=== PATIENT | male | born 1985 | race Caucasian/White ===

== ENCOUNTER 2025-09-14 08:59 | Emergency (ER) | payer OTHER, SELFPAY ==
[2025-09-14 09:06] VITALS: BP 174/108; PULSE 94; RESP 22; TEMP 35.5; O2SAT 99; BMI 31.9
[2025-09-14] MEDS: ONDANSETRON 2 MG/ML inj 4 MG IVP (09:16)
--- NOTE | 2025-09-14 09:17 | CRLHL7_ITS ---
For Patients: As a result of the Century Cures Act, medical imaging exams and procedure reports are released immediately into your electronic medical record. You may view this report before your referring provider. If you have questions, please contact your health care provider. INDICATION: Right flank pain. TECHNIQUE: CT abdomen and pelvis without contrast. COMPARISON: None. FINDINGS: Lower chest: Unremarkable. Liver: Unremarkable. Gallbladder and bile ducts: Unremarkable. Pancreas: Unremarkable. Spleen: Unremarkable. Adrenal glands: Unremarkable. Kidneys: 2 millimeter obstructing calculus at the right ureterovesicular junction with mild hydronephrosis. Possible punctate stone seen in the right lower pole of the kidney, seen on series 2, image 83. No left renal calculi. GI tract: Unremarkable normal appendix. Vasculature: Abdominal aorta is normal in caliber. Lymph nodes: No lymphadenopathy. Peritoneum/Abdominal Wall: Unremarkable. Pelvis: Unremarkable. Bones: No acute findings. IMPRESSION: 2 millimeter obstructing calculus seen at the right ureterovesicular junction with mild hydroureteronephrosis. Possible punctate stone seen in the right lower pole of the right kidney. Please note that all CT scans at this facility use dose modulation, iterative reconstruction, and/or weight-based dosing when appropriate to reduce radiation dose to as low as reasonably achievable. Dictated by Brown Macias MD @ 09/14/2025 10:15:46 AM (Electronically Signed)
--- NOTE | 2025-09-14 09:18 | ED.ABDPAIN ---
HPI - Abdominal Pain General Chief Complaint: Abdominal Pain Stated Complaint: severe side pain Time Seen by Provider: 09/14/25 09:08 History of Present Illness HPI narrative: Patient is a 39-year-old gentleman with history of single kidney stone in the past who presents with right flank pain. He had the abrupt onset of symptoms this morning with nausea vomiting and severe right flank pain. He has really not noticed any hematuria. He has no other abdominal pain no fevers no chills no night sweats no cough no shortness of breath. He has no other medical issues in takes no medications. Related Data Home Medications ?Medication ?Instructions ?Recorded ?Confirmed No Known Home Medications 09/14/25 09/14/25 Allergies Allergy/AdvReac Type Severity Reaction Status Date / Time No Known Drug Allergies Allergy Verified 09/14/25 09:06 Review of Systems Status of ROS Reports: 10 or more systems reviewed and unremarkable except as noted in History and below PFSH PFS Social History Smoking Status: Never smoker How often do you have a drink containing alcohol: never AUDIT-C Alcohol total score: 0 Non-prescribed substance use: denies use Exam Narrative: Exam Narrative: EXAM GENERAL: Patient appears acutely uncomfortable. EYES: No scleral icterus. LYMPH: No supraclavicular or cervical lymphadenopathy. SKIN: Visible skin seen during exam normal or with benign process only. EXT: No dependent lower extremity pedal edema. HEART: Regular rate and rhythm with no murmurs, rubs, or gallops. LUNGS: Clear to auscultation bilaterally with no crackles or wheezes. ABD: Soft, non tender, non distended. PSYCH: Good eye contact, speech is not pressured. Const: Vital Signs, click to edit/add: Vital Signs - 24 hr 09/14/25 09:06 Temperature 96 F L Pulse Rate [Pulse Oximeter] 94 Respiratory Rate 22 Blood Pressure [Le ft Upper Arm] 174/108 H Pulse Oximetry 99 Oxygen Delivery Me thod Room Air Course Course ED Course: Normal saline Toradol Zofran given. I did order CT of his abdomen and pelvis without contrast. I also sent off CBC comprehensive metabolic panel lactate and UA. Vital Signs Vital signs: Initial Vital Signs Temperature 96 F L 09/14/25 09:06 Temperature Source Temporal Artery Scan 09/14/25 09:06 Pulse Rate 94 09/14/25 09:06 Respiratory Rate 22 09/14/25 09:06 Blood Pressure 174/108 H 09/14/25 09:06 Blood Pressure Mean 130 H 09/14/25 09:06 Blood Pressure Position Supine 09/14/25 09:06 Pulse Oximetry 99 09/14/25 09:06 Oxygen Delivery Method Room Air 09/14/25 09:06 Vital Signs Temperature 96 F L 09/14/25 09:06 Pulse Rate 94 09/14/25 09:06 Respiratory Rate 22 09/14/25 09:06 Blood Pressure 174/108 H 09/14/25 09:06 Pulse Oximetry 99 09/14/25 09:06 Oxygen Delivery Method Room Air 09/14/25 09:06 Temperature 96 F L 09/14/25 09:06 Pulse Rate 94 09/14/25 09:06 Respiratory Rate 22 09/14/25 09:06 Blood Pressure 174/108 H 09/14/25 09:06 Pulse Oximetry 99 09/14/25 09:06 Oxygen Delivery Method Room Air 09/14/25 09:06 Medications Administered Medications: Discontinued Medications Generic Name Dose Route Start Last Admin Trade Name Freq PRN Reason Stop Dose Admin Hydromorphone HCl 0.5 mg 09/14/25 09:13 09/14/25 09:16 Hydromorphone 0.5 Mg/0.5 Ml Inj IVP 09/14/25 09:14 0.5 mg ONCE ONE Administration Sodium Chloride 1,000 mls @ 1,000 mls/hr 09/14/25 09:13 09/14/25 10:33 0.9 % Sodium Chloride 1000 Ml IV 09/14/25 10:12 Infused .Q1H SARAH Infusion Sodium Chloride 1,000 mls @ 1,000 mls/hr 09/14/25 10:21 09/14/25 10:33 0.9 % Sodium Chloride 1000 Ml IV 09/14/25 11:20 1,000 mls/hr .Q1H SARAH Administration Ketorolac Tromethamine 30 mg 09/14/25 09:59 09/14/25 10:04 Ketorolac 30 Mg/Ml Inj IVP 09/14/25 10:00 30 mg ONCE ONE Administration Ondansetron HCl 4 mg 09/14/25 09:13 09/14/25 09:16 Ondansetron 2 Mg/Ml Inj IVP 09/14/25 09:14 4 mg ONCE ONE Administration MDM - Abdominal Pain MDM Narrative Medical decision making narrative: Patient is a 39-year-old gentleman who presents with right flank pain. He is found have a 2 mm kidney stone at the UVJ. We did give him 2 L of saline. He received Dilaudid 0.5 and Toradol 30 mg pre also received Zofran 4 mg. He has had complete resolution of his symptoms. This time he does have some oxycodone and Flomax at home which he will continue. He will follow-up with his primary physician as needed. Lab Data Labs: Lab Results 09/14/25 Range/Units 09:10 WBC 9.10 (4.50-11.00) K/uL RBC 5.68 (4.30-5.90) m/uL Hgb 16.0 (13.5-17.5) gm/dL Hct 48.8 (37.0-53.0) % MCV 86 (80-100) fL MCH 28 (26-34) pg MCHC 33 (32-36) gm/dL RDW Coeff of Zhane 12.8 (11.5-15.5) % Plt Count 226 (140-440) K/uL Neut % (Auto) 74.7 H (42.0-72.0) % Lymph % (Auto) 17.0 L (20-44) % [place] % (Auto) 6.8 (0.0-11.0) % Eos % (Auto) 1.0 (0.0-7.0) % Baso % (Auto) 0.2 (0.0-3.0) % Neut # (Auto) 6.80 (1.7-7.0) K/uL Lymph # (Auto) 1.50 (0.90-2.90) K/uL [place] # (Auto) 0.60 (0.00-0.90) K/UL Eos # (Auto) 0.09 (0.00-0.50) K/uL Baso # (Auto) 0.02 (0.00-0.30) K/uL Abs Immat Gran (auto) 0.03 (0.00-0.30) K/uL Imm/Tot Granulo (auto) 0.3 % Sodium 139 (135-149) mmol/L Potassium 4.3 (3.6-5.1) mmol/L Chloride 99 (96-114) mmol/L Carbon Dioxide 27 (20-32) mmol/L Anion Gap 13 (7-15) mEq/L BUN 16 (5-24) mg/dL Creatinine 1.4 (0.5-1.5) mg/dL Estimated Creat Clear 71.70 Estimated GFR 65 ml/min Glucose 131 H (60-115) mg/dL Lactate 3.6 H (0.5-1.9) mmol/L Calcium 9.2 (8.4-10.6) mg/dL Total Bilirubin 0.7 (0.1-1.5) mg/dL AST 40 H (12-35) U/L ALT 75 H (4-50) U/L Alkaline Phosphatase 75 (40-150) U/L Total Protein 8.2 (6.0-8.3) g/dL Albumin 4.9 (3.3-5.0) g/dL Discharge Plan Discharge Clinical Impression: Kidney stone Patient Disposition: Home, Self-Care Condition: Stable Instructions: Kidney Stones (ED) Additional Instructions: Continue home medications as discussed. Follow-up with your doctor as needed. Activity Level: No Restrictions Discharge Diet: Regular Prescriptions: No Action No Known Home Medications Follow Up/Referrals: Provider,Not a Local [Primary Care Provider, Family Practice] Stand Alone Forms: [email or web address] Info Instructions
[2025-09-14 09:25] LABS: Lactate* 3.6 mmol/L (0.5-1.9)
[2025-09-14 09:26] LABS: Hematocrit* 48.8 % (37.0-53.0); Hemoglobin* 16.0 gm/dL (13.5-17.5); Immature Granulocytes Abs Auto 0.03 K/uL (0.00-0.30); Immature Granulocytes Pct Auto 0.3 %; Mean Corpuscular HGB Conc 33 gm/dL (32-36); Mean Corpuscular Hemoglobin 28 pg (26-34); Mean Corpuscular Volume 86 fL (80-100); RDW Coefficient of Variation % 12.8 % (11.5-15.5); Red Blood Count* 5.68 m/uL (4.30-5.90); White Blood Count* 9.10 K/uL (4.50-11.00)
[2025-09-14 09:27] LABS: Lymphocytes Absolute Auto 1.50 K/uL (0.90-2.90); Slide Review Reflex No
[2025-09-14 09:42] LABS: Albumin* 4.9 g/dL (3.3-5.0); Chloride* 99 mmol/L (96-114); Potassium* 4.3 mmol/L (3.6-5.1); Sodium* 139 mmol/L (135-149)
[2025-09-14 09:44] LABS: Blood Urea Nitrogen* 16 mg/dL (5-24); Creatinine* 1.4 mg/dL (0.5-1.5); Est. Creatinine Clearance* 71.70; Estimated Glomerular Filt Rate 65 ml/min
[2025-09-14 09:45] VITALS: PULSE 89; RESP 16; O2SAT 100
[2025-09-14 09:45] LABS: Alanine Aminotransferase* 75 U/L (4-50); Alkaline Phosphatase* 75 U/L (40-150); Anion Gap 13 mEq/L (7-15); Aspartate Amino Transferase* 40 U/L (12-35); Bilirubin Total* 0.7 mg/dL (0.1-1.5); Calcium* 9.2 mg/dL (8.4-10.6); Carbon Dioxide* 27 mmol/L (20-32); Glucose* 131 mg/dL (60-115); Total Protein* 8.2 g/dL (6.0-8.3)
[2025-09-14 10:00] VITALS: PULSE 86; O2SAT 100
[2025-09-14 11:00] VITALS: BP 141/70; PULSE 76; RESP 14; O2SAT 100
[2025-09-14 12:10] VITALS: PULSE 74; RESP 14; TEMP 35.5
== END 2025-09-14 12:10 | disposition home or self-care (01) ==
PROVIDERS: Emergency Provider Internal Medicine
DX: N20.0 Calculus of kidney (principal); R11.2 Nausea with vomiting, unspecified
CPT/HCPCS: 36415; 74176; 80053; 81003; 83605; 85025; 96361; 96374; 96375; 99283; 99284; J1171; J1885; J2405; J7030

== ENCOUNTER 2025-09-16 04:20 | Emergency (ER) | payer OTHER, SELFPAY ==
[2025-09-16 04:28] VITALS: BP 158/107; PULSE 105; RESP 22; TEMP 36.8; O2SAT 96; BMI 31.9
--- NOTE | 2025-09-16 04:47 | ED.GENADULT ---
HPI - General Adult General Chief complaint: Abdominal Pain Stated complaint: R side pain Time Seen by Provider: 09/16/25 04:37 Source: patient Mode of arrival: ambulatory Limitations: no limitations History of Present Illness HPI narrative: 39-year-old male presents to the emergency department for evaluation of worsening and return of right lower quadrant abdominal pain. Patient was evaluated in the ED about 44 hours ago. He had extensive blood workup and CT scan which revealed a 2 mm mildly obstructing right UVJ stone. There were no signs of sepsis, infection or abnormal creatinine. He was given IV Dilaudid, Toradol, fluids. He was discharged with oxycodone. Patient reports that the pain has been bothersome but became unbearable overnight. He does have Flomax at home and last took a dose yesterday morning. He took a dose of oxycodone when the pain became severe about 2 hours ago, continued vomiting and tried taking 1 of his mother's Zofran tablets about 45 minutes prior to arrival with some temporary improvement in nausea but not complete. Still having severe pain. There is no fever, no dysuria or hematuria noted. No bloody stools. No new trauma. There have been no changes or other updates to his health since his last visit 2 days ago. Pain is located in the right pelvic area, nothing in the CVA area. Pain achy and constant. Does not radiate. Some discomfort in the flank area though. He has no stool changes. This is similar to previous episodes of kidney stones but does seem more bothersome. He is not anticoagulated, does not have any other long-term health problems. No long-term prescription medications or allergies. ROS is notable for the right lower quadrant abdominal pain only, otherwise denies times 12 systems. Related Data Previous Rx's ?Medication ?Instructions ?Recorded cephalexin 500 mg capsule 500 mg PO TID 7 days #21 caps 09/16/25 ondansetron 4 mg disintegrating 4 mg PO Q8H PRN nausea and 09/16/25 tablet vomiting #10 tabs Allergies Allergy/AdvReac Type Severity Reaction Status Date / Time No Known Drug Allergies Allergy Verified 09/14/25 09:06 [facility] Social History Smoking Status: Never smoker Do you use any of these nicotine containing products: None Second hand tobacco smoke exposure: No How often do you have a drink containing alcohol: never AUDIT-C Alcohol total score: 0 Non-prescribed substance use: denies use service: No Exam Const: Vital Signs, click to edit/add: Vital Signs - 24 hr 09/16/25 04:28 Temperature 98.2 F Pulse Rate [Left P ulse Oximeter] 105 H Respiratory Rate 22 Blood Pressure [Ri ght Upper Arm] 158/107 H Pulse Oximetry 96 Oxygen Delivery Me thod Room Air Documenting provider has reviewed patient's vital signs: yes Common normals: alert Other: Mild distress due to pain but answers questions appropriately. Good historian. Appears well nourished and well hydrated. HENMT: Common normals: normocephalic, moist oral mucous membranes and oropharynx normal Head and scalp: normocephalic Eye: Common normals: conjunctivae normal General eye: normal appearance of both eyes Conjunctiva: conjunctiva(e) normal Neck & C-Spine: General: normal visual inspection Resp: Common normals: normal respiratory effort, no use of accessory muscles and clear to auscultation bilaterally Effort & inspection: able to speak in complete sentences Auscultation: clear to auscultation bilaterally Cardio: Common normals: regular rate, regular rhythm, S1 normal heart sound and S2 normal heart sound Rate: regular rate Rhythm: regular rhythm Heart sounds: S1 normal and S2 normal GI: Common normals: Normal to inspection, nondistended, normoactive bowel sounds present, soft to palpation, non-tender, no hepatosplenomegaly and no masses Palpation: soft and no hepatosplenomegaly Neuro: Sensorium/orientation: alert Speech: speech normal Motor exam: strength 5/5 throughout Psych: Attitude: engaged Activity/motor behavior: appropriate eye contact Attention/concentration: attention grossly intact Memory/cognition: memory grossly intact Insight: insight good Judgement: judgment good Skin: Common normals: no rashes or lesions noted General skin exam: no rashes or lesions noted Course Course ED Course: 39-year-old male with right UVJ stone, diagnosed less than 48 hours ago with worsening of pain overnight. No features of sepsis, fever, other signs of infection. Mild obstruction noted at last visit. CT and prior note reviewed. Unlikely to be other pathology. Patient is in agreement with this. I recommended that we do a L of fluid, 0.5 mg of Dilaudid, 30 of Toradol, 4 of IV Zofran and see how he feels. If this does not improve his symptoms, consider more advanced workup. We did place an IV and I do have blood available, Cathie double check a CBC, lactate, creatinine and electrolytes to ensure that there has been no elevation in creatinine, features of infection or other worrisome abnormality while we wait for clinical response. Patient was in agreement with this initial plan. Reevaluation(s) Time of Reevaluation #1: 05:30 Reevaluation #1: Patient feeling much better after the Toradol, Dilaudid and fluids. No further vomiting after the Zofran either. Counseled patient that he is starting to develop a white count and his creatinine has gone up slightly. He does not meet criteria for severe injury but I am still concerned. He has not been holding down fluids very well and lactate is elevated slightly. He is not exhibiting any features of sepsis like hypotension but picture is overall concerning for infection. I have collected a new urinalysis and will culture this. But I think we should start some Rocephin and transition on to Keflex. Rationale discussed with patient. Going to give another L of fluid prior to depart so that he is very well hydrated and transition to 10 mg of p.o. oxycodone. Patient will need to make a follow-up appointment in the clinic in 2-3 days to have his creatinine recheck to ensure that this is improving and push fluids in the interim. We discussed Tylenol as a baseline pain control for him to take a 1000 mg every 6 hours automatically for the next few days to help with overall pain, conserving the oxycodone for severe symptoms. I am going to give him his own prescription of the ondansetron that he may take this if the nausea and vomiting return, making him more likely to be able to hold down the oxycodone as well. Alarm symptoms were extensively reviewed such as fevers, severe weakness, overall signs of worsening that would warrant ED re-evaluation, he may require transfer for surgical consult. It is unlikely with this size of stone but it is still a possibility. I would repeat CT if he is showing any further signs of worsening. He had marked improvement with the interventions here in the ED and is feeling like he can manage at home now. Will discharge after the Rocephin and additional fluids. Vital Signs Vital signs: Initial Vital Signs Temperature 98.2 F 09/16/25 04:28 Temperature Source Temporal Artery Scan 09/16/25 04:28 Pulse Rate 105 H 09/16/25 04:28 Pulse Rhythm Regular 09/16/25 04:28 Respiratory Rate 22 09/16/25 04:28 Blood Pressure 158/107 H 09/16/25 04:28 Blood Pressure Mean 124 H 09/16/25 04:28 Blood Pressure Position Semi-Fowlers 09/16/25 04:28 Pulse Oximetry 96 09/16/25 04:28 Oxygen Delivery Method Room Air 09/16/25 04:28 Vital Signs Temperature 98.2 F 09/16/25 04:28 Pulse Rate 105 H 09/16/25 04:28 Respiratory Rate 22 09/16/25 04:28 Blood Pressure 158/107 H 09/16/25 04:28 Pulse Oximetry 96 09/16/25 04:28 Oxygen Delivery Method Room Air 09/16/25 04:28 Temperature 98.2 F 09/16/25 04:28 Pulse Rate 105 H 09/16/25 04:28 Respiratory Rate 22 09/16/25 04:28 Blood Pressure 158/107 H 09/16/25 04:28 Pulse Oximetry 96 09/16/25 04:28 Oxygen Delivery Method Room Air 09/16/25 04:28 Medications Administered Medications: Generic Name Dose Route Start Last Admin Trade Name Freq PRN Reason Stop Dose Admin Hydromorphone HCl 0.5 mg 09/16/25 04:46 09/16/25 05:03 Hydromorphone 0.5 Mg/0.5 Ml Inj IVP 09/16/25 04:47 0.5 mg ONCE ONE Administration Sodium Chloride 1,000 mls @ 1,000 mls/hr 09/16/25 04:46 09/16/25 05:46 0.9 % Sodium Chloride 1000 Ml IV 09/16/25 05:45 Infused .Q1H SARAH Infusion Sodium Chloride 1,000 mls @ 2,000 mls/hr 09/16/25 05:33 09/16/25 05:46 0.9 % Sodium Chloride 1000 Ml IV 09/16/25 06:02 2,000 mls/hr .Q30M SARAH Administration Ketorolac Tromethamine 30 mg 09/16/25 04:46 09/16/25 05:03 Ketorolac 30 Mg/Ml Inj IVP 09/16/25 04:47 30 mg ONCE ONE Administration Ondansetron HCl 4 mg 09/16/25 04:46 09/16/25 05:03 Ondansetron 2 Mg/Ml Inj IVP 09/16/25 04:47 4 mg ONCE ONE Administration Oxycodone HCl 10 mg 09/16/25 05:33 09/16/25 05:46 Oxycodone 5 Mg Tablet PO 09/16/25 05:34 10 mg ONCE ONE Administration Medical Decision Making Lab Data Lab results reviewed: Yes I reviewed the patient's lab results Lab results narrative: White count has gone up from 9 to 14-1/2 with ulnar neutrophils. Lactate is mildly elevated but could be related to dehydration. Creatinine has bumped slightly from 1.4-2.1 remainder of electrolytes look good though. Urinalysis does not show obvious infection but there are some bacteria present. Labs: Lab Results 09/16/25 09/16/25 Range/Units 04:40 05:22 WBC 14.57 H (4.50-11.00) K/uL RBC 5.16 (4.30-5.90) m/uL Hgb 14.6 (13.5-17.5) gm/dL Hct 43.3 (37.0-53.0) % MCV 84 (80-100) fL MCH 28 (26-34) pg MCHC 34 (32-36) gm/dL RDW Coeff of Zhane 12.4 (11.5-15.5) % Plt Count 190 (140-440) K/uL Neut % (Auto) 83.8 H (42.0-72.0) % Lymph % (Auto) 6.7 L (20-44) % [place] % (Auto) 9.1 (0.0-11.0) % Eos % (Auto) 0.1 (0.0-7.0) % Baso % (Auto) 0.1 (0.0-3.0) % Neut # (Auto) 12.20 H (1.7-7.0) K/uL Lymph # (Auto) 1.00 (0.90-2.90) K/uL [place] # (Auto) 1.30 H (0.00-0.90) K/UL Eos # (Auto) 0.00 (0.00-0.50) K/uL Baso # (Auto) 0.00 (0.00-0.30) K/uL Abs Immat Gran (auto) 0.00 (0.00-0.30) K/uL Imm/Tot Granulo (auto) 0.2 % Sodium 134 L (135-149) mmol/L Potassium 3.9 (3.6-5.1) mmol/L Chloride 98 (96-114) mmol/L Carbon Dioxide 26 (20-32) mmol/L Anion Gap 10 (7-15) mEq/L BUN 20 (5-24) mg/dL Creatinine 2.1 H (0.5-1.5) mg/dL Estimated Creat Clear 47.80 Estimated GFR 40 ml/min Glucose 116 H (60-115) mg/dL Lactate 2.2 H (0.5-1.9) mmol/L Calcium 9.1 (8.4-10.6) mg/dL Urine Color Yellow (Yellow) Urine Appearance Clear (Clear) Urine pH 6.5 (5.0-8.5) Ur Specific [place] 1.020 (1.000-1.030) Urine Protein 2+ A (Negative) Urine Glucose (UA) Negative (Negative) Urine Ketones 2+ A (Negative) Urine Blood 1+ A (Negative) Urine Nitrite Negative (Negative) Urine Bilirubin 1+ A (Negative) Urine Urobilinogen 0.2 (0.2-1.0) Ur Leukocyte Esterase Negative (Negative) Urine RBC 0-2 (0-2) Urine WBC 2-5 (0-5) Ur Squamous Epith Cells Few (None-Few) Urine Bacteria Few A (None) Discharge Plan Discharge Clinical Impression: Calculus of ureterovesical junction (UVJ) Patient Disposition: Home w/ Parent or Adult Condition: Improved Instructions: Ureteral Stones (ED) Additional Instructions: As we discussed, I think that your kidney stone is starting to show some signs of early infection. You do not have a fever but you are starting to develop a little bit of a white blood cell count and your kidney function blood test is rising slightly. Because of this, I have started you on Rocephin here in the emergency room. This is excellent at treating kidney infections as well as basic urinary infections. If the stone were bigger this would require urgent surgery but because of the small size, it is still very likely to pass on its own in someone young and healthy as long as we can flush it through. Because of this, I gave you 2 full L of IV fluid and I need you still drinking and pushing fluid aggressively for the next few days. But remember if you have high fever, severe weakness or signs of other worrisome complications, please come back to the ED right away. You will need to continue taking antibiotics at home, your next dose will be at bedtime tonight. You will take 1 pill 3 times daily. Take this for at least 5 days but I will give you a 7 day supply just in case you need it longer. I do want you to take the antibiotics for 2 full days after the stone has passed, but a minimum of 5 days. So if you pass it within the next 2 days, you only need 5 days. But if you passed the stone in 5 days, take 7 days of antibiotics. Continue using the oxycodone if needed. I will also send a supply of anti nausea medicine to the pharmacy. Try to let the anti nausea medicine kick in for at least 5 minutes prior to trying to hold down any of the oxycodone if you need to use it. Remember that Tylenol can be very effective as a baseline medication. I would like for you to take 1000 mg every 6 hours automatically even if you are not noticing any severe pain to help take the edge off. It is also okay for you to use ibuprofen or Aleve if the Tylenol is ineffective. Keep taking the Flomax once daily until you are confident the stone has passed. Please make a follow-up appointment with a primary care doctor for 3 days from now. You need to have your creatinine rechecked. If this is continuing to go up, we would need to consult a urologist, a specialist in these kidney stones. We will culture your urine to make sure that we have chosen the correct antibiotic and will contact you only if we need to change medications. Activity Level: Activity as Tolerated Prescriptions: New ondansetron 4 mg tablet,disintegrating 4 mg PO Q8H PRN (Reason: nausea and vomiting) Qty: 10 0RF cephalexin 500 mg capsule 500 mg PO TID 7 Days Qty: 21 0RF Follow Up/Referrals: Provider,Not a Local [Primary Care Provider, Family Practice] Stand Alone [facility]: [facility] Info Instructions
[2025-09-16 04:59] LABS: Hematocrit* 43.3 % (37.0-53.0); Hemoglobin* 14.6 gm/dL (13.5-17.5); Immature Granulocytes Pct Auto 0.2 %; Lactate* 2.2 mmol/L (0.5-1.9); Mean Corpuscular HGB Conc 34 gm/dL (32-36); Mean Corpuscular Hemoglobin 28 pg (26-34); Mean Corpuscular Volume 84 fL (80-100); RDW Coefficient of Variation % 12.4 % (11.5-15.5); Red Blood Count* 5.16 m/uL (4.30-5.90); White Blood Count* 14.57 K/uL (4.50-11.00)
[2025-09-16 05:01] LABS: Immature Granulocytes Abs Auto 0.00 K/uL (0.00-0.30); Lymphocytes Absolute Auto 1.00 K/uL (0.90-2.90); Slide Review Reflex No
[2025-09-16] MEDS: ONDANSETRON 2 MG/ML inj 4 MG IVP (05:03)
[2025-09-16 05:15] LABS: Chloride* 98 mmol/L (96-114); Potassium* 3.9 mmol/L (3.6-5.1); Sodium* 134 mmol/L (135-149)
[2025-09-16 05:18] LABS: Blood Urea Nitrogen* 20 mg/dL (5-24); Creatinine* 2.1 mg/dL (0.5-1.5); Est. Creatinine Clearance* 47.80; Estimated Glomerular Filt Rate 40 ml/min
[2025-09-16 05:19] LABS: Anion Gap 10 mEq/L (7-15); Calcium* 9.1 mg/dL (8.4-10.6); Carbon Dioxide* 26 mmol/L (20-32); Glucose* 116 mg/dL (60-115)
[2025-09-16 05:29] LABS: Appearance Urine Clear (Clear)
[2025-09-16] MEDS: cefTRIAXone 1 GM in 0.9 % SODIUM CHLORIDE Mini-bag 100 ML IVPB (05:35)
== END 2025-09-16 06:30 | disposition home or self-care (01) ==
PROVIDERS: Emergency Provider Family Medicine
DX: N20.1 Calculus of ureter (principal); R11.2 Nausea with vomiting, unspecified; R94.4 Abnormal results of kidney function studies
CPT/HCPCS: 36415; 80048; 81001; 83605; 85025; 87086; 96361; 96374; 96375; 99284; 99285; A9270; J0696; J1171; J1885; J2405; J7030